=== PATIENT | male | born 1995 | race Caucasian/White ===

== ENCOUNTER 2023-03-19 15:08 | Emergency (ER) | payer OTHER ==
[~2023-03-19] VITALS: Ht 167.6 cm; Wt 77.3 kg
[2023-03-19 15:10] VITALS: BP 117/73; PULSE 72; RESP 16; TEMP 98.6
[2023-03-19] MEDS ORDERED: LEVE500T20 PO ×3 (15:14→15:38)
== END 2023-03-19 15:47 | disposition home or self-care (01) ==
LOC: EMS 15:10
DX: Z76.0 Encounter for issue of repeat prescription (principal); Z98.890 Other specified postprocedural states
CPT/HCPCS: 99281; Z7502

== ENCOUNTER → 2023-07-28 | Outpatient (CLI) | payer OTHER ==
[~2023-07-28] MED LIST: LEVE500T20 PO
[2023-07-28 15:32] LABS: BASOPHILS % (AUTO) 0.8 % (0.0-2.0); EOSINOPHILS % (AUTO) 5.8 % (1.0-6.0); HEMATOCRIT 40.7 % (41-53); LYMPHOCYTES # (AUTO) 0.8 K/uL (1.0-4.8); LYMPHOCYTES % (AUTO) 20.4 % (22.0-44.0); MEAN CORPUSCULAR HEMOGLOBIN 30.7 pg (26.0-34.0); MEAN CORPUSCULAR HGB CONC 34.5 G/dL (31.0-37.0); MEAN CORPUSCULAR VOLUME 89 fL (80-100); MONOCYTES # (AUTO) 0.7 K/uL (0.1-1.0); MONOCYTES % (AUTO) 17.3 % (2.0-9.0); NEUTROPHILS # (AUTO) 2.3 K/uL (1.8-7.7); NEUTROPHILS % (AUTO) 55.7 % (40.0-70.0); PLATELET COUNT (AUTO) 206 K/uL (150-450); RED BLOOD CELL COUNT(AUTO) 4.58 MIL/uL (4.50-5.90); RED CELL DISTRIBUTION WIDTH 13.2 % (11.5-14.5); WHITE BLOOD COUNT (AUTO) 4.1 K/uL (4.5-11.0)
[2023-07-28 15:57] LABS: ALANINE AMINOTRANSFERASE 59 U/L (12-78); ALBUMIN 4.1 g/dL (3.4-5.0); ALKALINE PHOSPHATASE 106 U/L (46-116); ANION GAP 9 mmol/L (8-16); ASPARTATE AMINOTRANSFERASE 29 U/L (15-37); BILIRUBIN,TOTAL 0.3 mg/dL (0.1-1.0); CALCIUM, TOTAL 8.9 mg/dL (8.8-10.5); CARBON DIOXIDE 29 mmol/L (22-29); CHLORIDE 102 mmol/L (98-107); CHOL/HDL RATIO 4.2 (4.2-7.3); CHOLESTEROL 221 mg/dL (131-200); CREATININE 0.88 mg/dL (0.60-1.30); GLOMERULAR FILTR. RATE CALC > 60 mL/min (>60); GLUCOSE,RANDOM 87 mg/dL (70-110); HDL CHOLESTEROL 53 mg/dL (40-60); LDL CHOL (CALC.) 153 mg/dL (0-130); POTASSIUM 4.3 mmol/L (3.5-5.1); SODIUM SERUM 140 mmol/L (136-145); THYROID STIMULATING HORMONE 0.52 uIU/mL (0.36-3.74); TRIGLYCERIDES 73 mg/dL (15-150); UREA NITROGEN, BLOOD 15 mg/dL (7-18)
[2023-07-29 10:28] LABS: FOLATE SERUM 9.7 ng/mL (5.4-)
== END | disposition home or self-care (01) ==
LOC: LABMN 15:02
PROVIDERS: ATTEND Legal Medicine
DX: Z00.00 Encounter for general adult medical examination without abnormal findings (principal)
CPT/HCPCS: 80053; 80061; 82306; 82607; 82746; 84443; 85018; 85025

== ENCOUNTER → 2023-08-10 | Outpatient (CLI) | payer OTHER | END | disposition home or self-care (01) | LOC: LABMN 15:16 | PROVIDERS: ATTEND Legal Medicine | DX: Z00.00 Encounter for general adult medical examination without abnormal findings (principal); G40.909 Epilepsy, unspecified, not intractable, without status epilepticus | CPT/HCPCS: 36415; G0482 ==

== ENCOUNTER → 2023-09-10 | Outpatient (CLI) | payer OTHER | END | disposition home or self-care (01) | LOC: LABMN 14:01 | PROVIDERS: ATTEND Legal Medicine | DX: R56.9 Unspecified convulsions (principal) | CPT/HCPCS: 36415; G0482 ==

== ENCOUNTER → 2023-11-04 | Outpatient (CLI) | payer OTHER ==
[2023-11-04 12:22] LABS: CHOL/HDL RATIO 4.2 (4.2-7.3)
== END | disposition home or self-care (01) ==
LOC: LABMN 10:38
PROVIDERS: ATTEND Legal Medicine
DX: R56.9 Unspecified convulsions (principal); E55.9 Vitamin D deficiency, unspecified
CPT/HCPCS: 82306; 80061; 36415; G0482

== ENCOUNTER → 2024-03-06 | Outpatient (CLI) | payer OTHER ==
[~2024-03-06] MED LIST changes: +LEVE-71 PO; -LEVE500T20 PO
[2024-03-06 10:35] LABS: BASOPHILS % (AUTO) 0.7 % (0.0-2.0); HEMATOCRIT 44.2 % (41-53); HEMOGLOBIN 14.9 g/dL (13.5-17.5); LYMPHOCYTES # (AUTO) 1.8 K/uL (1.0-4.8); LYMPHOCYTES % (AUTO) 32.1 % (22.0-44.0); MEAN CORPUSCULAR HEMOGLOBIN 30.1 pg (26.0-34.0); MEAN CORPUSCULAR HGB CONC 33.6 G/dL (31.0-37.0); MEAN CORPUSCULAR VOLUME 89 fL (80-100); MONOCYTES # (AUTO) 0.3 K/uL (0.1-1.0); MONOCYTES % (AUTO) 6.3 % (2.0-9.0); NEUTROPHILS # (AUTO) 3.2 K/uL (1.8-7.7); NEUTROPHILS % (AUTO) 58.9 % (40.0-70.0); PLATELET COUNT (AUTO) 261 K/uL (150-450); RED BLOOD CELL COUNT(AUTO) 4.94 MIL/uL (4.50-5.90); RED CELL DISTRIBUTION WIDTH 12.9 % (11.5-14.5); WHITE BLOOD COUNT (AUTO) 5.5 K/uL (4.5-11.0)
[2024-03-06 10:42] LABS: ERYTHROCYTE SEDIMENTATION RATE 4 MM/HR (0-15)
[2024-03-06 10:53] LABS: ALANINE AMINOTRANSFERASE 40 U/L (12-78); ALBUMIN 3.9 g/dL (3.4-5.0); ALKALINE PHOSPHATASE 100 U/L (46-116); ANION GAP 4 mmol/L (8-16); ASPARTATE AMINOTRANSFERASE 20 U/L (15-37); BILIRUBIN,TOTAL 0.6 mg/dL (0.1-1.0); CALCIUM, TOTAL 8.9 mg/dL (8.8-10.5); CARBON DIOXIDE 28 mmol/L (22-29); CHLORIDE 104 mmol/L (98-107); CREATININE 0.82 mg/dL (0.60-1.30); GLOMERULAR FILTR. RATE CALC > 60 mL/min (>60); GLUCOSE,RANDOM 121 mg/dL (70-110); POTASSIUM 3.8 mmol/L (3.5-5.1); SODIUM SERUM 136 mmol/L (136-145); THYROID STIMULATING HORMONE 0.65 uIU/mL (0.36-3.74); TOTAL PROTEIN, SERUM 7.3 g/dL (6.4-8.2); UREA NITROGEN, BLOOD 17 mg/dL (7-18)
[2024-03-06 11:37] LABS: FOLATE SERUM 8.3 ng/mL (5.4-); VITAMIN B12 LEVEL > 2000 pg/mL (211-911)
== END | disposition home or self-care (01) ==
LOC: LABMN 10:08
PROVIDERS: ATTEND Psychiatry & Neurology Neurology
DX: D51.9 Vitamin B12 deficiency anemia, unspecified (principal); D52.9 Folate deficiency anemia, unspecified; R70.0 Elevated erythrocyte sedimentation rate; R76.0 Raised antibody titer; M05.9 Rheumatoid arthritis with rheumatoid factor, unspecified; R94.6 Abnormal results of thyroid function studies; R79.89 Other specified abnormal findings of blood chemistry; R68.89 Other general symptoms and signs
CPT/HCPCS: 80053; 82607; 82746; 84443; 85025; 85651; 86038; 86431